=== PATIENT | male | born 1935 | race Caucasian/White ===

== ENCOUNTER 2017-02-19 17:49 | Observation (INO) | payer MEDICARE, MEDICAID ==
[2017-02-19] VITALS (7 sets, daily range): BP systolic 119–158; BP diastolic 54–77; PULSE 75–116; RESP 16–18; O2SAT 95–97
[~2017-02-19] VITALS: Ht 188 cm; Wt 68.0 kg
[~2017-02-19 17:49] MED LIST: ASCO10007 PO; CHOL100094 PO; CITA10TA9 PO; DOXA8TAB73 PO; HYDR-3740 PO; METO25TA6 PO; MULT-1018 PO; ROB500 PO; VIT1CAPS27 PO; WARF2.5T82 PO
--- NOTE | 2017-02-19 18:20 | ED.REPORT ---
HPI-Back Pain 40 and Over Date of Service Feb 19, 2017 ED Provider: Nakul Ozuna DO Pt is a 81 year old male with a history of chronic back pain, A-fib, pacemaker insertion, and HTN who presents to the ED via EMS after a near syncopal episode today. He c/o associated change LOC, urinary incontinence, and bowel incontinence. He denies worsening back pain, chest pain, headache, neck pain, and SOB. Pt reports that he had used the bathroom prior to his episode of incontinence, which was followed by the near syncopal episode. The pt reports that he has not experienced similar symptoms previously. His family reports that the pt experiences constant "burning" back pain. Nursing Notes Stated Complaint: LOW BACK PAIN Chief Complaint: Back Pain or Injury Nursing Notes Reviewed: Yes Allergies: Coded Allergies: No Known Allergies (Verified , 02/19/17) Uncoded Allergies: HAYFEVER (Allergy, Unknown, RHINITIS, 04/22/07) Scheduled Citalopram (Citalopram) 10 Mg Tablet 10 MG PO AM Docusate Sodium (Colace) 100 Mg Capsule 300 MG PO HS Gabapentin (Gabapentin) 100 Mg Capsule 100 MG PO TID Metoprolol Tartrate (Metoprolol Tartrate) 25 Mg Tablet 25 MG PO BID Multivitamin (Multi Vitamin Daily) 1 Each Tablet 1 EACH PO DAILY Vit C/Tommie AC/Lut/Copper/Znox (Preservision Lutein Softgel) 1 Each Capsule 2 EACH PO DAILY Warfarin Sodium (Warfarin Sodium) 2.5 Mg Tablet 3.75 MG PO DAILY Scheduled PRN Hydrocodone-Acetaminophen 10-325 mg (Hydrocodone-Acetaminophen 10-325 mg) 1 Tab Tablet 1 TAB PO QID PRN PRN For Pain General Time Seen by MD: 18:18 Chief Complaint Other (near syncope) Hx Obtained From: Patient, EMS Arrived By: Ambulance Sudden in Onset?: Yes Onset Occurred: Just prior to arrival Symptom Duration: Duration unknown Severity: Current: No pain currently Severity: Maximum: No pain Recent Healthcare: No recent doctor visit, No recent hospitalization Similar Sx Previous: No Past Medical History Past Medical History BPH SBO Sepsis Cataracts Right eye - blind Anxiety Reports: Cancer (prostate), Hypertension Reports: Atrial fibrillation Past Surgical History Pacemaker Hernia repair Smoking History Former Smoker Social History Alcohol Use: Denies alcohol use Drug Use: Denies drug use Other Social History: Good social support Ambulatory Status Independent Review of Systems + bowel incontinence Respiratory: Denies: Shortness of breath Cardiovascular: Denies: Chest pain Male: Reports Incontinence (urinary) Musculoskeletal: Reports: Back pain, Denies: Neck pain Neurologic: Reports: Change LOC, Syncope, Denies: Headache Complete sys rev & neg: except as marked. Physical Exam Initial Vital Signs Vital Signs (First) Date Time Temp Pulse Resp B/P Pulse Ox O2 Delivery O2 Flow Rate FiO2 02/19/17 18:00 37.8 75 16 119/77 95 Room Air Initial VS: Reviewed Head / Eyes: Atraumatic, Normocephalic Neck: Supple, Full range of motion Skin: Warm, Dry, No cyanosis Psychiatric: Mood/affect normal, Behavior normal General/Constitutional: Awake, Alert Respiratory / Chest: Atraumatic, Breath sounds NL, Breath sounds = bilat Cardiovascular: Heart rate NL, Regular rhythm, Heart sounds NL Abdomen: Atraumatic, Soft, Non-tender Back: Atraumatic, Full range of motion Neurologic: Oriented X3, Speech NL, No motor deficits, No sensory deficits Upper and lower extremity strength is intact. Lower Extremity / Pelvis / MS: Neurologic intact, Vascular intact No saddle anesthesia Interpretation & Diagnostics BRAIN CT W/O CONTRAST: IMPRESSION: No acute intracranial disease process. Dictated by: Marina Carroll MD, PhD on 02/19/2017 at 19:59 Lab Results Interpretation Result Diagram: 02/19/17191602/19/171916 Test 02/19/17 19:17 White Blood Count 6.9th/mm3 (3.8-10.1) Red Blood Count 3.77mil/mm3 (4.40-5.80) Hemoglobin 11.7g/dL (13.8-17.2) Hematocrit 35.7% (41.0-50.0) Mean Corpuscular Volume 94.7fL (81-100) Mean Corpuscular Hemoglobin 31.0pg (27.0-35.0) Mean Corpuscular Hemoglobin Concent 32.8% (32.0-37.0) Red Cell Distribution Width 12.6% (12.3-15.4) Platelet Count 163bil/L (150-400) Neutrophils (%) (Auto) 76.3% (40-74) Lymphocytes (%) (Auto) 11.2% (14-46) Monocytes (%) (Auto) 11.9% (4-12) Eosinophils (%) (Auto) 0.4% (0-5) Basophils (%) (Auto) 0.1% (0-3) Prothrombin Time 31.2sec (8.1-12.5) Prothromb Time International Ratio 2.85ratio D-Dimer 1.53mg/L FEU (<0.50) Sodium Level 138mEq/L (134-144) Potassium Level 4.5mEq/L (3.5-5.2) Chloride Level 100mEq/L (97-108) Carbon Dioxide Level 27mmol/L (18-29) Blood Urea Nitrogen 19mg/dL (8-27) Creatinine 0.63mg/dL (0.76-1.27) Estimat Glomerular Filtration Rate 129mL/min (>59) Glucose Level 128mg/dL (60-99) Calcium Level 9.9mg/dL (8.5-10.1) Magnesium Level 2.0mg/dL (1.6-2.6) Iron Level 30ug/dL (35-150) Total Iron Binding Capacity 250ug/dL (250-450) Percent Iron Saturation 12%sat (15-50) Unsaturated Iron Binding 220.4ug/dL Total Bilirubin 0.4mg/dL (0.0-1.2) Aspartate Amino Transf (AST/SGOT) 16U/L (0-50) Alanine Aminotransferase (ALT/SGPT) 12U/L (0-44) Alkaline Phosphatase 40U/L (25-160) Troponin T < 0.010ug/L (0.0-0.011) Pro-B-Type Natriuretic Peptide 1432pg/mL (0-486) Total Protein 7.1g/dL (6.4-8.4) Albumin 4.5g/dL (3.4-5.0) Procalcitonin 0.06ng/mL (0.00-0.08) Thyroid Stimulating Hormone (TSH) 2.080uIU/mL (0.450-4.500) ECG Interpretation ECG Interpretation: Underlying A-fib with a rate of 82 No STEMI LVH with secondary repolarization abnormality Time: 06:54 Interpreted by: ED physician Re-Eval/Medical Decision Med Decision/Clinical Course Syncope of uncertain etiology. Age and warfarin use increase the risk of cardiac etiology. Will admit for observation. Source of Hx: Old records Re-Evaluation/Progress : Time of Eval: 20:50 Re-Evaluation/Progress Note: Pt rechecked. Family reports pt's constant back pain. Informed pt and family of plan for admission. Pt and family understand and agree with plan for admission. All questions addressed. Consultation : Referral / Consult Name: Mona Rosales Consulted With: Hospitalist Call Returned at: 20:59 Temperature Control Inspector: Will see patient, Agrees with eval, Agrees with plan, Accepts admit Counseled Regarding: Diagnosis, Lab results, Need for admission Discharge & Departure Impression: Primary Impression: Syncope Syncope type: unspecified Qualified Code: R55 - Syncope and collapse Additional Impressions: On warfarin at home Incontinence of bowel Fecal incontinence type: unspecified Qualified Code: R15.9 - Full incontinence of feces Disposition: ADMITTED TO HOSPITAL Discharge Condition All VS Reviewed: Yes Condition: Stable Referrals: Chris Love MD (PCP) Scribe Attestation Portions of this note were transcribed by Jacqui Melendrez. I, Dr. Ozuna personally performed the history, physical exam and medical decision-making; I reviewed and confirmed the accuracy of the information in the transcribed note. Signed by : Nichelle Romeo, 02/19/17. copies to: Chris Love MD, Todd P DO Feb 19, 2017 18:20 Jacqui Navarro Feb 19, 2017 18:55
[2017-02-19 19:20] LABS: BASOPHILS % (AUTO) 0.1 % (0-3); EOSINOPHILS % (AUTO) 0.4 % (0-5); MONOCYTES % (AUTO) 11.9 % (4-12); Mean Corpuscular Volume 94.7 fL (81-100); NEUTROPHILS % (AUTO) 76.3 % (40-74); Platelet Count 163 bil/L (150-400)
[2017-02-19 19:40] LABS: D-Dimer 1.53 mg/L FEU (<0.50); INR 2.85 ratio
[2017-02-19 19:45] LABS: TROPONIN T < 0.010 ug/L (0.0-0.011)
--- NOTE | 2017-02-19 20:02 | DRSVH ---
PROCEDURE: CT BRAIN WITHOUT CONTRAST ([id number]) INDICATIONS: syncope, incontinent and warfarin use TECHNIQUE: Noncontrast 4.5 mm thick angled axial sections acquired from the foramen magnum to the vertex, with c oronal reformats. COMPARISON: None. FINDINGS: Image quality: Excellent. CSF spaces: Basal cisterns are patent. No extra-axial fluid collections. The ventricles are symmet andra in size and shape. Brain: No intracranial bleeds or masses. There is cerebral volume loss for age, with resultant vent ricular and sulcal prominence. There are periventricular and deep white matter chronic small vessel ischemic changes. There is intracranial internal carotid artery atherosclerosis. Skull and face: Calvarium and visualized facial bones appear intact, without suspicious lesions. Rig ht globe phthisis bulbi noted. Sinuses: Visualized sinuses and mastoids are clear. IMPRESSION: No acute intracranial disease process. Dictated by: Marina Carroll MD, PhD on 02/19/2017 at 19:59 Approved by: Marina Carroll MD, PhD on 02/19/2017 at 20:01
[2017-02-19] MEDS ORDERED: DOCU-41 PO (21:33)
[2017-02-19] MEDS ORDERED: GABA-500 PO (21:33)
[2017-02-19] MEDS ORDERED: Ondansetron 2 mg/mL 2 mL Inj IVPUSH PRN (22:00)
[2017-02-19] MEDS ORDERED: Alum-Mag Hydrox-Simeth 30 mL Suspension PO PRN (22:00)
[2017-02-19] MEDS ORDERED: Polyethylene Glycol (PEG) 17 Gm Powder PO PRN (22:00)
--- NOTE | 2017-02-19 23:27 | PCM.HPMED ---
Subjective Date of Service Feb 19, 2017 Primary Provider: Admitting Physician: Beverly Kingston MD Primary Care Physician: Chris Love MD Attending Physician: Beverly Kingston MD Admit Status: From the Emergency Department, Full Admit Chief Complaint: Near syncope. . History of Present Illness: Moses Mitchell is an 81-year-old male with a past medical history significant for chronic back pain, atrial fibrillation, pacemaker insertion, hypertension who presented to [facility] emergency department via EMS after a near syncopal episode today. He reports that he got up and ate breakfast around 0800 and shortly after he began feeling "bad." He reports that he then went to the bathroom and had a bowel movement. When he arose and went to walk to the bedroom he began feeling lightheaded and was incontinent of bowel and bladder. He reports that he felt as though he was going to pass out but was able to sit down before he did so. He reports he started feeling better after he sat down. He then called 911. He denies any loss of consciousness or falls. He has no history of seizures and did not bite his tongue. He denies headache, sore throat, palpitations, chest pain, shortness of breath, worsening back pain or neck pain, nausea, vomiting, fever, chills, diarrhea or constipation. He endorses chronic dysuria. He does note increased urinary frequency. He has not experienced similar symptoms previously. Of note, he reports he has felt "bad "the last several days as though he was coming down with something. Vital signs in the ER: Temperature 37.8. Pulse 75. Respiratory rate 16. Blood pressure 119/77. Pulse ox 95% room air. PCP is Dr. Chris Love. Urologist is Dr. Marina Delaney. . Review of Systems: A comprehensive review of systems was conducted with the patient and found to be negative except as above in the History of Present Illness. . Allergies Coded Allergies: No Known Allergies (Verified , 02/19/17) Uncoded Allergies: HAYFEVER (Allergy, Unknown, RHINITIS, 04/22/07) Home Medications Citalopram 10 mg every morning. Colace 300 mg daily at bedtime. Gabapentin 100 mg 3 times a day. Hydrocodone 10-325 mg 1 tab 4 times a day as needed for pain. Metoprolol tartrate 25 mg twice a day. Multivitamin 1 tablet daily. Lutein softgel 1 tablet daily. Warfarin 3.75 mg daily. . PMH 1. BPH 2. History of SBO. 3. Right eye blindness. 4. Anxiety. 5. History of prostate cancer status post seed implantation. 6. Hypertension. 7. Chronic atrial fibrillation on warfarin. 8. Subtotal colectomy for benign tumors. 9. Right shoulder rotator cuff tear inoperable. 10. DJD of the back, right glenohumeral and AC joint. 11. Tachybrady syndrome status post pacemaker insertion x 2. 12. History of pacemaker infection status post removal and reimplantation. 13. BPPV. 14. Anemia. . Surgical History 1. Pacemaker insertion x 2. 2. Abdominal hernia repair. 3. Subtotal colectomy and resection of benign abdominal tumors. 4. Prostate radioactive seed implantation. . Family History Mother who from unknown cancer. Dad who of old age in 90's. Brother who from complications of alcoholism. Another brother who of a drug overdose. . Social History Hx Alcohol Use: No Hx Substance Use: No Hx Tobacco Use: Yes Smoking Status: Former Smoker (1/2 PPD x 50+ years) Additional Information The patient is and was for 60 years. He has 3 children, 2 twin daughters and a son who are all healthy. He was born in [place]. 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 . Exam Vital Signs Vital Sign - Last Date Time Temp Pulse Resp B/P Pulse Ox O2 Delivery O2 Flow Rate FiO2 02/19/17 21:49 37 83 18 126/54 95 Room Air Exam General: Elderly gentleman lying in bed and in no acute distress, thin, appropriately interactive HEENT: Normocephalic, atraumatic. External ears without defect. Pupils equal, round, and reactive to light. Hard of hearing with hearing aids in place. Anicteric sclerae, moist conjunctivae, and no lid lag of left eye. Right eye blidness. Oropharynx free of erythema and cobble stoning. Dry mucous membranes. Neck: Poor skin turgor. No jugular venous distension. No bruits. No lymphadenopathy or thyromegaly. Cardiovascular: Irregularly irregular without murmurs, rubs, or gallops appreciated Pulmonary: Clear to auscultation bilaterally without crackles, wheezes, or rhonchi. Normal respiratory effort with no use of accessory muscles. Abdomen: Soft, nontender, nondistended, bowel sounds present, several surgical scars on abdomen. Suprapubic tenderness. No CVA or flank tenderness. No hepatosplenomegaly or masses appreciated. Extremities: No clubbing, cyanosis, or edema. Skin: Normal temperature and texture; no rash, ulcers, or subcutaneous nodules appreciated. Neurological: Cranial nerves grossly intact. Normal muscle strength, tone, and bulk. Reflexes, coordination, and sensory function within normal limits. No known gait impairment. Psychiatric: Normal mood and affect. Alert and oriented to person, place, and time. . Lab and Diagnostics Labs Item Value Date Time Prothrombin Time 31.2 sec H 02/19/171916 Prothromb Time International Ratio 2.85 ratio 02/19/171916 D-Dimer 1.53 mg/L FEU H 02/19/171916 Item Value Date Time Calcium Level 9.9 mg/dL 02/19/171916 Magnesium Level 2.0 mg/dL 02/19/171916 Total Bilirubin 0.4 mg/dL 02/19/171916 Aspartate Amino Transf (AST/SGOT) 16 U/L 02/19/171916 Alanine Aminotransferase (ALT/SGPT) 12 U/L 02/19/171916 Alkaline Phosphatase 40 U/L 02/19/171916 Troponin T < 0.010 ug/L 02/19/171916 Pro-B-Type Natriuretic Peptide 1432 pg/mL H 02/19/171916 Total Protein 7.1 g/dL 02/19/171916 Albumin 4.5 g/dL 02/19/171916 Result Diagram: 02/19/17191602/19/171916 X-Rays, CTs and MRIs CT BRAIN WITHOUT CONTRAST IMPRESSION: No acute intracranial disease process. Dictated by: Marina Carroll MD, PhD on 02/19/2017 at 19:59 . 12-lead ECG EKG: Atrial fibrillation with ventricular pacing, PVCs, no acute ischemic changes such as ST elevation or depression. . Assessment & Plan Moses Mitchell is an 81-year-old male with a past medical history significant for chronic back pain, atrial fibrillation, pacemaker insertion, hypertension who presented to [facility] emergency department via EMS after a near syncopal episode today. 1. Near syncope, present on admission. Active. - Patient presented after a near syncopal episode with incontinence of both bowel and bladder. No history of seizures. - Differential diagnosis includes: Vasovagal syncope versus orthostatic hypotension versus UTI versus BPPV. Less likely cardiac etiology including arrhythmia or valvular heart disease versus neurogenic versus neoplasm. - Ordered echocardiogram, pending. - Ordered orthostatic blood pressures, pending. - Ordered urinalysis with culture if indicated, pending. We will await results prior to initiation of antibiotics. - Procalcitonin normal at 0.06. - Electrolytes within normal limits. - Ordered TSH, pending. - EKG revealed chronic atrial fibrillation with frequent PVCs. - Continue to monitor for arrhythmias on telemetry. - Patient does have a significant history of chronic back pain, therefore, day team to consider CT spine for possible neoplasm if symptoms persist (MRI not available as patient has pacemaker). - Started gentle IV fluid hydration with NS at 80 mL/hr. Chronic problems: 2. Chronic atrial fibrillation on warfarin, present on admission. Stable. - The patient is therapeutic on warfarin. Continue warfarin with dosing per pharmacist. - Currently rate controlled. Continue metoprolol tartrate 25 mg twice a day. 3. Anxiety, present on admission. Stable. - Continue citalopram 10 mg every morning. 4. Chronic back pain with opiate habituation, present on admission. Stable. - Continue gabapentin 100 mg 3 times a day and hydrocodone 10-325 mg 1 tab 4 times a day as needed for pain. 5. Hypertension, present on admission. Stable. - Continue metoprolol tartrate 25 mg twice a day. 6. Anemia, present on admission. Stable. - Baseline Hgb 11.0-12.0. - Likely anemia of chronic disease. - Ordered iron panel. - Monitor H&H daily. PRN antiemetics: Zofran and Maalox. PRN bowel regimen: Senna and MiraLAX. PRN analgesics: Tylenol. Patient is admitted under inpatient status with expected length of stay greater than 2 midnights due to severity of presenting symptoms, risk of adverse event, and complexity of treatment plan. . VTE Prophylaxis: Theraputic Anticoag with Warfarin, SCDs Resuscitation Status: CPR: Attempt Resuscitation Attending Statement Patient has been seen and examined by myself with medical microbiologist and agree with above history, physical, assessment and plan. copies to: Chris Love MD, [place] M DO Feb 19, 2017 21:56 Beverly Kingston MD Feb 20, 2017 06:38
[2017-02-19 23:58] LABS: Unsaturated Iron Binding 220.4 ug/dL
[2017-02-20] VITALS (9 sets, daily range): BP systolic 107–145; BP diastolic 64–92; PULSE 71–145; RESP 16–18; O2SAT 94–96
[2017-02-20] MEDS: 0.9% Sodium Chloride 1,000 ML IV SCH ×2 (00:09→12:57)
[2017-02-20] MEDS: HYDROcodone-APAP 10-325 mg PO PRN ×2 (00:09→03:53)
[2017-02-20] MEDS ORDERED: Heparin 5,000 Unit/mL Inj SUBQ SCH (00:30)
[2017-02-20 00:37] LABS: APPEARANCE,URINE CLEAR (CLEAR,HAZY); COLOR,URINE YELLOW (YELLOW); PH,URINE 6.5 (5.0-8.0)
[2017-02-20 00:38] LABS: OCCULT BLOOD,URINE TRACE (NEGATIVE); UROBILINOGEN,URINE NORMAL (NORMAL)
[2017-02-20 05:35] LABS: BASOPHILS % (AUTO) 0.2 % (0-3); EOSINOPHILS % (AUTO) 0.3 % (0-5); MONOCYTES % (AUTO) 13.4 % (4-12); Mean Corpuscular Hemoglobin 31.4 pg (27.0-35.0); Mean Corpuscular Volume 94.8 fL (81-100); NEUTROPHILS % (AUTO) 73.3 % (40-74); Platelet Count 153 bil/L (150-400)
--- NOTE | 2017-02-20 05:36 | NUR ---
Admission Pt admitted to [facility] rm 1006 at 2230 fro the ED. Pt admitted for near syncope episode. Pt able to slide over form gurney to bed. A/O x3, making needs known very talkative. on room air, Pt is CPR. IV in left AC SL, failed and new IV started to Rt upper arm, IV fluids started. Pt oriented to room/call light. Reports pain 2-3/10 due to Cx. low back pain. Diet is heart healthy. Tele placed, athletic monitor reports Afib, Vpaced 83. Bed locked in low, care continues
[2017-02-20 06:10] LABS: INR 2.81 ratio
--- NOTE | 2017-02-20 09:17 | NUR ---
Social work note - Initial assessment Data: Moses Mitchell is a 81 yr old male admitted for syncope, warfarin use. EMR reviewed: Pt has [facility] medicare and [facility] Supp. His PCP is at the [facility]. AZEEM on file. No LTC or VA benefits. Readmit score is not listed at this time. See attached CM initial assessment. CARLY met with pt - introduced D/C planning and explained SW role. Pt lives at home alone. Pt has a NAYELI caregiver, CM is Henny Pierson. Henny has an assessment planned tomorrow at noon if pt is d/c today. SW will keep her updated. [employer] requested to fax H&P. Pt reports his caregiver is available 3x weekly for assistance with housekeeping, chores, errands. Pt has 44 hours monthly. Pt's children are involved, SW spoke with daughter Rocio by phone briefly. They assist pt a few times a month for home maintenance, etc. Pt reports that he continues to drive. Uses a cane at home but has a walker available. Assessment: Pt who has NAYELI caregivers at home and is independent at baseline. Plan: Home with children via POV. SW to update NAYELI CM of d/c date. SW will continue to follow. CARLY Vick Addendum: 02/20/17 at 0923 by ELIZABETH GRACE Amended: Links added.
[2017-02-20] MEDS: Phenylephrine-Mineral Oil 28 Gm Ointment RECTAL PRN ×2 (10:16→21:29)
--- NOTE | 2017-02-20 10:57 | NUR ---
Evaluation completed. Please go to "Notes" then click on "Assessments and Notes" (bottom left corner of screen). Then select appropriate discipline tab on top of screen.
--- NOTE | 2017-02-20 12:34 | DRSVH ---
[facility] [address] [place] [address] Echocardiogram Report Name: TIFFANIE QUINTANA JStudy Date: Height: 74 in Hospital Exam Location: [facility] Weight: 14 8 lb Gender: Male BSA: 1.9 m2 : 1935 Age: 81 yrs BP: 123/78 mmHg Reason For Study: NEAR SYNCOPE, H/O PFO Ordering Physician: Al Vance Performed By: Esme Hernandez Referring Physician: EDVIN ALONZO Interpretation Summary 1. Normal left ventricular size, wall thickness and systolic function with an estimated EF of 50-55% 2. Mildly dilated right ventricle with normal systolic function. The estimated RVSP is 8 mm Hg. The estimated RVSP is 39 mm Hg 3. Moderate to severe mitral regurgitation into a dilated left atrium. Compared to the previous study (images reviewed), findings appear relatively unchanged. Procedure: A two-dimensional transthoracic echocardiogram with color flow and Doppler was performed. The study quality was technically good. Comparison is made with the echocardiogram of 04/10/13. The patient was in atrial fibrillation with heart rates between 72 and 105 bpm during the exam. Left Ventricle: There is borderline concentric left ventricular hypertrophy. The left ventricle is moderately dilated. The ejection fraction is estimated to be 50-55%. Diastolic function could not be accurately assessed due to atrial fibrillation. Right Ventricle: The right ventricle is mildly dilated. There is a pacemaker lead in the right ventricle. The right ventricular systolic function is normal. Atria: The left atrium is severely dilated. The right atrium is severely dilated. A patent foramen ovale is present. This is unchanged compared to the previous study. Mitral Valve: The mitral valve leaflets appear mildly thickened, but open well. The mitral valve leaflets appear to open well. There is moderate to severe mitral regurgitation. There are multiple regurgitant jets present. Aortic Valve: The aortic valve is trileaflet. The aortic valve is mildly calcified. The aortic valve opens well. There is mild aortic regurgitation. There is an eccentric jet of aortic insufficiency directed against the anterior mitral leaflet. Tricuspid Valve: The tricuspid valve leaflets are thin and pliable. There is mild to moderate tricuspid regurgitation. The right ventricular systolic pressure is estimated at least 39 mmHg assuming a right atrial pressure of 8 mm Hg. Pulmonic Valve: The pulmonic valve leaflets are thin and pliable; valve motion is normal. There is mild pulmonic regurgitation. Great Vessels: The aortic root is mildly dilated. The ascending aorta is at the upper limits of normal in size. The aortic arch could not be visualized. The IVC is dilated (diameter is greater than 2.1 cm) yet it collapses greater than 50% with a sniff. This suggests a right atrial pressure of 8 mm Hg. Pericardium/ Pleura There is a trace loculated pericardial effusion. There is no pleural effusion. MMode/2D Measurements & Calculations LVIDd: 6.7 cm RA long axis LVOT diam LVIDs: 5.6 cm LA A2 area: 45.5 cm FS: 17.0 % LA A4 area: 39.4 cm RA area AoV Opening EPSS: 1.5 cm LA length (vol): 8.1 cm IVSd: 1.1 cm LA vol: 186.9 ml : 49.5 cm Ao root diam LVPWd: 1.1 cm LA vol index RA vol : 226.ml asc Aorta RA Diam: 3.5 cm IVC diam: 2.9 cm : 118.3 mm2 LV vasquez. diameter/BSA LV sys. diameter/BSA RVD1 (basal) RVD2 (mid) (cm/m^2): 3.5 (cm/m^2): 2.9 : 3.1 cm TAPSE: 1.7 cm Doppler Measurements & Calculations Ao V2 max MV E max oc Med Peak E' Oc TR max oc : 113.7 cm/sec : 73.4 cm/sec : 276.1 cm/sec Ao max PG E/E' med: 7.8 TR max P.5 mmHg : 5.2 mmHg Lat Peak E' Oc PA V2 max: 75.5 cm/sec Ao mean PG PA mean P.3 mmHg E/E' lat: 4.0 PA Accel Time LVOT Max Oc E/e' average: 5.9 : 0.10 sec : 77.2 cm/sec RAHEEM(I,D): 2.8 cm sev ratio Ao V2 mean LV V1 max PG PA V2 mean RAHEEM indexed to BSA : 86.2 cm/sec : 52.5 cm/sec (cm^2/m^2): 1.5 Ao V2 VTI: 20.4 cmLV V1 VTI : 14.2 cm RAHEEM(V,D): 2.7 cm2 Reading Physician:12:33 PM
[2017-02-20] MEDS ORDERED: MeTOProlol 1 mg/mL 5 mL Inj IVPUSH PRN (13:05)
--- NOTE | 2017-02-20 13:12 | PCM.PNMED ---
Subjective Date of Service Feb 20, 2017 Subjective no overnight event. pt denied chest pain, sob, laying down, tolerated supine position. consulted given hx of PPM, valvular dz. Exam Vital Signs Vital Sign - Last Date Time Temp Pulse Resp B/P Pulse Ox O2 Delivery O2 Flow Rate FiO2 02/20/17 10:14 99 02/20/17 10:08 145/65 02/20/17 08:17 37.1 18 94 Room Air IVs and Medications Medications Reviewed: Medications were reviewed in detail Lab and Diagnostics Result Diagram: 02/20/17 0452 02/19/17 1917 X-Rays, CTs and MRIs CT BRAIN WITHOUT CONTRAST IMPRESSION: No acute intracranial disease process. Dictated by: Marina Carroll MD, PhD on 02/19/2017 at 19:59 . 12-lead ECG EKG: Atrial fibrillation with ventricular pacing, PVCs, no acute ischemic changes such as ST elevation or depression. . Assessment & Plan Moses Mitchell is an 81-year-old male with a past medical history significant for chronic back pain, atrial fibrillation, pacemaker insertion, hypertension who presented to [facility] emergency department via EMS after a near syncopal episode today. acute, active presyncopal episode, POA, likely orthostasis from dehydration, frequent urination, micturition syncope , probable cardiac etiology with afib, valvular heart dz.EKG showed afib, TSH WNL, no s/s infection. UA unremarkable. Pt was started on IVF 80cc/hr. -pt remains clinically stable. -appreciate cardiology consult today, PPM interogated, TTE -continue IVF 80cc/hr for now -bladder scan given hx voiding difficulty, frequent urination. -monitor on telemetry chronic afib, POA, -became uncontrolled rate, >110s today, -continue home dose metoprolol tartrate 25 bid, 5mg iv x3 prn for HR>110s, likely to increase metoprolol dose assuming pacemaker functioning well, -appreciate Cardiology follow up -continue Coumadin per pharmacy Chronic, stable, 3. Anxiety, present on admission. Stable. - Continue citalopram 10 mg every morning. 4. Chronic back pain with opiate habituation, present on admission. Stable. - Continue gabapentin 100 mg 3 times a day and hydrocodone 10-325 mg 1 tab 4 times a day as needed for pain. 5. Hypertension, present on admission. Stable. - Continue metoprolol tartrate 25 mg twice a day. 6. Anemia, present on admission. Stable. - Baseline Hgb 11.0-12.0. - Likely anemia of chronic disease. - Ordered iron panel. - Monitor H&H daily. PRN antiemetics: Zofran and Maalox. PRN bowel regimen: Senna and MiraLAX. PRN analgesics: Tylenol. dispo: home likely 1-2more days VTE Prophylaxis: Theraputic Anticoag with Warfarin, SCDs VTE Mechanical Devices: Intermittant Pneumatic CD Resuscitation Status: CPR: Attempt Resuscitation Time spent 35min Benjy العلي MD Feb 20, 2017 13:12
--- NOTE | 2017-02-20 14:06 | CONS ---
[address] [address] CONSULTATION REPORT PATIENT: TIFFANIE QUINTANA : 1935 MR#: [id number] ADMIT: 02/19/2017 JOB ID: [id number] DATE OF SERVICE: 02/20/2017 CARDIOLOGY CONSULTATION: CHIEF COMPLAINT: Near syncope HISTORY OF PRESENT ILLNESS: The patient is an 81-year-old man with past medical history significant for atrial fibrillation with a need for pacer placement given bradycardic episodes. He is not pacemaker dependent, however. He is followed by Dr. Siegel in the Cardiology Clinic and is treated with beta blockers as well as warfarin. He was in his usual state of health when he went to go have a bowel movement at the bathroom. Got up to go to his chair and suddenly had both vomiting as well as incontinence of stool. He felt very lightheaded and made his way to his chair without passing out. He was brought into the ED for this. He did not have any chest pain, chest pressure, did not notice palpitations at the time, and since his admission, things have settled down. He has not had any more nausea or vomiting and his bowel movements have normalized. He is not sure what caused the episode yesterday. As part of his workup, he had interrogation of his pacer that shows that it is functioning correctly. There were periods today of higher rates which are likely related to atrial fibrillation, but yesterday no significant higher rates were appreciated. Today he is doing well. He does report chronic low back pain and abdominal discomfort with intermittent problems with burning with urination. Does appear that he is being followed by Urology for this. PAST MEDICAL HISTORY/PROBLEM LIST: 1. History of atrial fibrillation. 2. 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 3. History of small bowel obstruction which was treated with surgery which apparently resulted in some infection, however, and he tells me he was thought that he would not live but he did. 4. History of prostate cancer status post seed implantation. 5. History of hypertension. 6. History of degenerative joint disease. HOME MEDICATIONS: 1. Citalopram 10 mg a day. 2. Colace 200 mg at bedtime. 3. Gabapentin 100 mg three times a day. 4. Hydrocodone as needed. 5. Metoprolol tartrate 25 b.i.d. 6. Multivitamin 1 tablet daily. 7. Warfarin. ALLERGIES: No known drug allergies. SOCIAL HISTORY: Former tobacco use. No alcohol use. FAMILY HISTORY: No early coronary disease. REVIEW OF SYSTEMS: Overall health: No fevers, chills, night sweats or weight loss. GI: Recent problems with vomiting and incontinence of stool. Seems to have improved. Urologic: He has intermittent severe burning with urination but no evidence for urinary tract infection. No blood in his urine. Pulmonary: No known lung disease. No wheezing. Cardiac: No history of orthopnea, PND, lower extremity edema. Has a pacemaker Musculoskeletal: Chronic back pain. Endocrine: No heat or cold intolerance. Heme: No easy bruising or bleeding. ENT: No decreased hearing. No difficultly swallowing. Ophtho: No acute vision changes. Psych: No acute issues. All review of systems of a 12 point review of system are negative. PHYSICAL EXAMINATION: Blood pressure 145/65, heart rates are somewhat high today although it has come down to 99 at this time. Sats are 94% on room air. Constitutional: In no acute distress. Speaking in full sentences without apparent shortness of breath. Head and neck examination: Normocephalic, atraumatic. Neck: No obvious JV distention. Vascular: No carotid bruits appreciated. 1+DP pulses. Heart examination: Occasionally irregular. I do not appreciate a soft systolic murmur at the apex. Lungs sound clear. Back: No CVA tenderness to palpation. Abdomen with fairly normal bowel sounds. Mild discomfort in the suprapubic area. No rebound or guarding. Extremities: Warm, no edema. No joint swelling. Skin without breakdown appreciated. Neuro: Alert and interactive. Gait is not tested. Psych: Appropriate mood and affect. ENT: Hearing grossly intact. Ophtho: Vision grossly intact. CURRENT MEDICATIONS: Include: 1. Sodium chloride. 2. Escitalopram. 3. Metoprolol 25 b.i.d. 4. Gabapentin 100 mg t.i.d. 5. P.r.n. hydrocodone-acetaminophen. LABORATORIES: Show white count 8.6, H and H 10.9 and 32.9. Platelets of 153,000. This is stable. Chemistry shows sodium 138, potassium 4.1. Troponin less than 0.01. TSH within normal limits. Procalcitonin not elevated. IMAGING: Shows a brain CT that has no acute issues. Other labs show a urinalysis that shows no evidence for white cells. There is trace blood. Culture was not sent as it is not indicated. Pacer: Interrogations of the pacer is functioning well. As noted, there were some high ventricular rate periods which are likely related to atrial fibrillation, that these were seen today not yesterday. Echocardiogram looks stable compared to his previous findings. IMPRESSION: The patient had a near syncopal event which sounds like it may have been vagally mediated, likely associated with his episode of vomiting and loose bowel movement or incontinence of stool. He is not really clear what started the process. He thinks he might be coming down with a bug. He seems to be doing better at this time. His pacer is functioning well. PLAN: 1. I think his near syncopal event was likely related to the vomiting and the bowel movement. He is doing much better at this time. His pacer is working well. He has chronic burning with urination (this has been an ongoing issue for him) 45 minutes was spent reviewing his records, reviewing the pacer information, speaking with an examining the patient MTDD
--- NOTE | 2017-02-20 15:38 | NUR ---
Faxed H & P to Henny TYLER CM at [facility] per JEWEL CUPPING MACHINE OPERATOR
--- NOTE | 2017-02-20 17:46 | NUR ---
Aidan villarreal MD at regarding something to help the patient sleep at night. Awaiting response.
[2017-02-21 00:15] VITALS: BP 123/74; PULSE 68; RESP 17; O2SAT 96
[2017-02-21] MEDS: 0.9% Sodium Chloride 1,000 ML IV SCH ×2 (02:32→14:15)
[2017-02-21 04:50] VITALS: BP 119/70; PULSE 74; RESP 17; O2SAT 95
[2017-02-21 06:03] LABS: INR 2.21 ratio
--- NOTE | 2017-02-21 06:04 | NUR ---
Sleep Patient had little difficulty sleeping this shift, however exhibited s/s similar to those of sleep apnea i.e. loud snoring, and possible pauses in breaths. Patient denies pain at this time. VSS. Bed in low position, call light within reach, intentional rounding.
[2017-02-21 08:54] VITALS: BP 108/67; PULSE 91
[2017-02-21] MEDS: HYDROcodone-APAP 10-325 mg PO PRN (08:59)
[2017-02-21 11:00] VITALS: PULSE 80
--- NOTE | 2017-02-21 11:10 | PCM.PHAPRO ---
Progress Near syncope. . Date Feb 20-Feb 21-Feb INR 2.85 2.81 2.21 INR change -0.04 -0.6 Warf Dose 3.75 3.50 3.75 Tre Torres Pharm.D Feb 21, 2017 11:10
--- NOTE | 2017-02-21 12:57 | NUR ---
Social Work- Readiness for D/C Data: EMR reviewed. Pt is on day 2 of hospitalization for syncope, warfarin use. Pt discussed in multidisciplinary rounds. PT has recommended HHPT, MD is agreeable to RN PT though he wants to speak with pt's family first. HHRN PT orders are entered, requests that [employer] hold off on making referral to company until MD speaks with family. [employer] agreeable. Pt is agreeable to HH, though he will likely not want to go to a SNF. Pt's [facility] will be required to authorize SNF stay. Pt may skill out of authorization. HH CHOICE LIST PROVIDED. Pt has no preference, SW will consult rotating calendar and make referral to [facility] when MD indicates. Pt to d/c home with his daughter to transport via POV. SW will continue to follow. Assessment: Pt for whom RN PT is medically indicated at this time, R/O SNF Plan: MD to discuss with pt's family SNF vs. . CARLOE RN PT orders have been received, no referral placed at this time. SW will continue to follow. CARLY Vick Addendum: 02/21/17 at 1322 by ELIZABETH GRACE T/C from regarding referral. MD states make referral and pt's family will be staying with pt to offer support at d/c. SANTO made referral to [facility], per rotating calendar, and spoke with Beny Bradley at [facility]. Beny accepted referral, F2F will be picked up by Beny. Access given. All agreeable to plan. SW will continue to follow. CARLY Vick
--- NOTE | 2017-02-21 13:51 | PCM.DIMED ---
Discharge Instructions Date of Service Feb 21, 2017 Dates of Hospitalization Feb 19, 2017 at 21:53 Discharge Diagnosis Discharge Diagnosis Dizziness, near syncope secondary to dehydration which was probably the result of viral gastroenteritis. Diet Discharge Diet: Low fat, Low Sodium, Heart Healthy Activity Discharge Activity: Home Health Phyical Therapy, Outpatient Physical Therapy Patient Instructions Follow-up plan Follow up with PCP or Coumadin clinic for INR check and Warfarin dose adjustment. Follow up with PCP Follow-up with PCP in: Other (3-4 days after discharge) Gene Lugo MD Feb 21, 2017 13:51
--- NOTE | 2017-02-21 14:03 | PCM.DC.MED ---
Discharge Summary Date of Service Feb 21, 2017 Dates of Hospitalization Date of Hospital Admission Feb 19, 2017 at 21:53 Date of Discharge: Feb 21, 2017 Providers: Admitting Physician: Beverly Kingston MD Primary Care Physician: Chris Love MD Attending Physician: Gene Lugo MD Diagnosis at Time of Discharge Diagnosis at Time of Discharge Dizziness, near syncope secondary to dehydration which was probably the result of viral gastroenteritis. Consultations Alie Bull MD Procedures XRay, CTs & MRIs CT BRAIN WITHOUT CONTRAST IMPRESSION: No acute intracranial disease process. Dictated by: Marina Carroll MD, PhD on 02/19/2017 at 19:59 . ECG 12 Lead EKG: Atrial fibrillation with ventricular pacing, PVCs, no acute ischemic changes such as ST elevation or depression. ECHO Interpretation Summary 1. Normal left ventricular size, wall thickness and systolic function with an estimated EF of 50-55% 2. Mildly dilated right ventricle with normal systolic function. The estimated RVSP is 8 mm Hg. The estimated RVSP is 39 mm Hg 3. Moderate to severe mitral regurgitation into a dilated left atrium. Compared to the previous study (images reviewed), findings appear relatively unchanged. . Hospital Course Principle Diagnosis: Dizziness, near syncope secondary to dehydration secondary to viral gastroenteritis Secondary Diagnosis: A-fib, HTN Physical exam: danielle was seen and examined on the day of discharge Operations During Hospitalization: none Hospital Course: Moses Mitchell is an 81-year-old male with a past medical history significant for chronic back pain, atrial fibrillation, on Coumadin, s/ p pacemaker insertion, hypertension who presented to [facility] emergency department via EMS after a near syncopal episode today. Patient has recent Hx of GI viral infection. Some of his family members also had stomach flu. Patient was diagnosed with Dizziness, near syncope secondary to dehydration secondary to viral gastroenteritis which is improved now. Patient was treated with IVF. CT head showed age-related changes . Echo showed normal ejection fraction, moderate to severe mitral valve regurgitation . PT/OT evaluated the patient and advised home with [facility]. I discussed it with patient's daughter she asured me some one will stay with the patient at his home all the time. After patient improved he was discharged home with [facility] with recommendation to follow up with his PCP for further management of his medical problems. Patient Condition @ Discharge: good Discharge Disposition: [facility] Discharge Activity: resume regular activity, patient was advised to avoid heavy physical work or exertion Discharge Diet: regular diet, heart healthy, low fat, low salt, high fiber Information Provided to Patient: information about discharge medications Discharge Medications: I discussed with patient medication dosage, usage, goals of therapy, side effects, alternatives. During discharge patient was allert, oriented, fully competent, able to make own informed decisions. We discussed possible severe side effects, adverse reactions, benefits, risks, alternatives of current and newly prescribed medications and diagnostic procedures. Patient verbalized understanding and agreed to current plan of care and discharge. TIME SPENT IN DISCHARGE ACTIVITY: Face to face activity greater then 30 minutes spent in discharge activity. 1. Discussed with patient re: discharge plan of care/treatment, and follow up care/services. 2. Patient/family agreed with discharge plan and further plan of care, all questions were answered/addressed, no further questions at the time of discharge. Exam Vital Signs (Last) Date Time Temp Pulse Resp B/P Pulse Ox O2 Delivery O2 Flow Rate FiO2 02/21/17 11:00 80 02/21/17 08:54 108/67 02/21/17 04:50 36.8 17 95 Room Air Test 02/19/17 19:17 02/19/17 22:16 02/19/17 23:30 02/20/17 04:52 D-Dimer 1.53mg/L FEU (<0.50) Sodium Level 138mEq/L (134-144) Potassium Level 4.5mEq/L (3.5-5.2) Chloride Level 100mEq/L (97-108) Carbon Dioxide Level 27mmol/L (18-29) Blood Urea Nitrogen 19mg/dL (8-27) Creatinine 0.63mg/dL (0.76-1.27) Estimat Glomerular Filtration Rate 129mL/min (>59) Glucose Level 128mg/dL (60-99) Calcium Level 9.9mg/dL (8.5-10.1) Iron Level 30ug/dL (35-150) Total Iron Binding Capacity 250ug/dL (250-450) Percent Iron Saturation 12%sat (15-50) Unsaturated Iron Binding 220.4ug/dL Total Bilirubin 0.4mg/dL (0.0-1.2) Aspartate Amino Transf (AST/SGOT) 16U/L (0-50) Alanine Aminotransferase (ALT/SGPT) 12U/L (0-44) Alkaline Phosphatase 40U/L (25-160) Troponin T < 0.010ug/L (0.0-0.011) Pro-B-Type Natriuretic Peptide 1432pg/mL (0-486) Total Protein 7.1g/dL (6.4-8.4) Albumin 4.5g/dL (3.4-5.0) Procalcitonin 0.06ng/mL (0.00-0.08) Thyroid Stimulating Hormone (TSH) 2.080uIU/mL (0.450-4.500) Hemoglobin A1c 5.7% (4.8-5.6) Urine Color Yellow (YELLOW) Urine Appearance Clear (CLEAR,HAZY) Urine pH 6.5 (5.0-8.0) Urine Specific Wittmann 1.020 (1.003-1.035) Urine Protein Negativemg/dL (NEG,TRACE) Urine Glucose (UA) Negativemg/dL (NEGATIVE) Urine Ketones Negativemg/dL (NEGATIVE) Urine Occult Blood Trace (NEGATIVE) Urine Nitrite Negative (NEGATIVE) Urine Bilirubin Negative (NEGATIVE) Urine Urobilinogen Normalmg/dL (NORMAL) Urine Leukocyte Esterase Negative (NEGATIVE) Urine RBC 3-10/hpf (0-2) Urine WBC 0-5/hpf (0-5) Urine Epithelial Cells Occasional/hpf (NONE-MOD) Urine Crystals None seen (NONE SEEN) Urine Bacteria Few/hpf (NONE-FEW) Urine Hyaline Casts None/lpf (NONE) Urine Granular Casts None seen (NONE SEEN) Urine Waxy Casts None seen (NONE SEEN) Urine Red Blood Cell Casts None seen (NONE SEEN) Urine White Blood Cell Casts None seen (NONE SEEN) Urine Mucus None seen (None Seen) Urine Trichomonas None seen (NONE SEEN) Urine Yeast None (NONE SEEN) Urinalysis Comment None Urine Culture Reflexed Not indicated White Blood Count 8.6th/mm3 (3.8-10.1) Red Blood Count 3.47mil/mm3 (4.40-5.80) Hemoglobin 10.9g/dL (13.8-17.2) Hematocrit 32.9% (41.0-50.0) Mean Corpuscular Volume 94.8fL (81-100) Mean Corpuscular Hemoglobin 31.4pg (27.0-35.0) Mean Corpuscular Hemoglobin Concent 33.1% (32.0-37.0) Red Cell Distribution Width 12.6% (12.3-15.4) Platelet Count 153bil/L (150-400) Neutrophils (%) (Auto) 73.3% (40-74) Lymphocytes (%) (Auto) 12.7% (14-46) Monocytes (%) (Auto) 13.4% (4-12) Eosinophils (%) (Auto) 0.3% (0-5) Basophils (%) (Auto) 0.2% (0-3) Reticulocyte Count,Calculated 0.7% (0.6-2.6) Magnesium Level 1.7mg/dL (1.6-2.6) Test 02/21/17 05:08 Prothrombin Time 24.0sec (8.1-12.5) Prothromb Time International Ratio 2.21ratio Discharge Medications Discharge Medications Citalopram (Citalopram) 10 Mg Tablet 10 MG PO AM (Reported) Docusate Sodium (Colace) 100 Mg Capsule 300 MG PO HS (Reported) Gabapentin (Gabapentin) 100 Mg Capsule 100 MG PO TID (Reported) Metoprolol Tartrate (Metoprolol Tartrate) 25 Mg Tablet 25 MG PO BID (Reported) Multivitamin (Multi Vitamin Daily) 1 Each Tablet 1 EACH PO DAILY (Reported) Vit C/Tommie AC/Lut/Copper/Znox (Preservision Lutein Softgel) 1 Each Capsule 2 EACH PO DAILY (Reported) Warfarin Sodium (Warfarin Sodium) 2.5 Mg Tablet 3.75 MG PO DAILY (Reported) As needed Hydrocodone-Acetaminophen 10-325 mg (Hydrocodone-Acetaminophen 10-325 mg) 1 Tab Tablet 1 TAB PO QID PRN PRN For Pain (Reported) Followup Plan Follow-up plan Follow up with PCP or Coumadin clinic for INR check and Warfarin dose adjustment. Follow up with PCP Discharge Diet: Low fat, Low Sodium, Heart Healthy Discharge Activity: Home Health Phyical Therapy, Outpatient Physical Therapy Follow-up with PCP in: Other (3-4 days after discharge) Gene Lugo MD Feb 21, 2017 14:03
[2017-02-21] MEDS: Phenylephrine-Mineral Oil 28 Gm Ointment RECTAL PRN (14:15)
--- NOTE | 2017-02-21 15:29 | NUR ---
Social Work- Discharge Data: Pt to d/c today, home with daughter to transport via POV. Daughter to stay with pt at d/c. Madhuri LAM RN PT will follow up with pt, F2F provided to Beny Bradley. Pt updated and agreeable to plan. Assessment: Pt for whom Madhuri LAM RN PT is medically necessary at d/c Plan: Pt to d/c home with Madhuri LAM RN PT services and daughter to transport via POV. Tamra Bell CLIENT TECHNICAL PROFESSIONAL
--- NOTE | 2017-02-21 17:05 | NUR ---
Discharge Pt discharged at 1700 with daughter to private vehicle. Having mild 2/10 pain in back, which is chronic for him. Declined 1700 Warfarin and will take dose at home tonight. A&O x 3, NICHOLAS, VSGodwin. Telemetry removed. IV removed intact. Pt has care notes and discharge instructions, no new rx's. All questions answered and has all belongings.
== END 2017-02-21 17:00 | disposition home health service (06) ==
LOC: SED 17:49 → EDBD 17:49 → OSC 21:53
PROVIDERS: ADMIT Specialist; ATTEND Specialist
DX: R55 Syncope and collapse (principal); E86.0 Dehydration; I48.2 Chronic atrial fibrillation; F41.9 Anxiety disorder, unspecified; M54.9 Dorsalgia, unspecified; I10 Essential (primary) hypertension; D64.9 Anemia, unspecified; R15.9 Full incontinence of feces; I49.5 Sick sinus syndrome; N40.0 Benign prostatic hyperplasia without lower urinary tract symptoms; K56.60 Unspecified intestinal obstruction; Z95.0 Presence of cardiac pacemaker; Z79.01 Long term (current) use of anticoagulants; Z87.891 Personal history of nicotine dependence; Z85.46 Personal history of malignant neoplasm of prostate; Z90.49 Acquired absence of other specified parts of digestive tract
CPT/HCPCS: 36415; 70450; 80053; 81000; 83036; 83540; 83550; 83735; 83880; 84145; 84443; 84484; 85025; 85045; 85378; 85610; 93005; 97110; 97116; 97161; 99285; C8929; G0378; J7030